=== PATIENT | female | born 1990 | race Hispanic/Latino ===

== ENCOUNTER 2018-05-31 13:55 | Outpatient (CLI) | payer BC | END 2018-05-31 13:56 | disposition home or self-care (01) | LOC: BICULT 13:55 | PROVIDERS: ATTEND Physician Assistant | DX: R22.1 Localized swelling, mass and lump, neck (principal) | CPT/HCPCS: 76536 ==

== ENCOUNTER 2018-06-06 17:00 | Outpatient (CLI) | payer BC | END 2018-06-06 17:01 | disposition home or self-care (01) | LOC: SLEEPLAB 17:00 | PROVIDERS: ATTEND Dentist General Practice | DX: G47.33 Obstructive sleep apnea (adult) (pediatric) (principal); R53.83 Other fatigue | CPT/HCPCS: 95806 ==

== ENCOUNTER 2018-09-05 08:26 | Outpatient (CLI) | payer BC ==
--- NOTE | 2018-09-05 11:42 | CT ---
CT THORAX WITH IV CONTRAST: Date: 09-05-18 History: Left upper chest and back pain. Pain started after a flight a few weeks ago. Comparison: None available. FINDINGS: Mediastinal structures have a normal appearance. The thoracic aorta is normal in caliber without evid ence of an aortic dissection. There is a small 4 mm pulmonary nodule right lower lobe. The lungs are otherwise clear. No pleural ef fusion, pneumothorax or mass is seen. The upper abdomen demonstrates a normal CT appearance. Osseous structures have a normal appearance. IMPRESSION: 1. Nonspecific 4 mm right lower lobe pulmonary nodule. Lungs are otherwise clear without pneumothorax or pleural effusion. POS: [facility]
== END 2018-09-05 08:27 | disposition home or self-care (01) ==
LOC: BICCT 08:26
PROVIDERS: ATTEND Family Medicine
DX: R07.9 Chest pain, unspecified (principal); R91.1 Solitary pulmonary nodule
CPT/HCPCS: 71260